=== PATIENT | male | born 1985 | race American Indian/Alaskan Native ===

== ENCOUNTER 2017-07-08 17:33 | Emergency (ER) | payer OTHER ==
[2017-07-08 17:33] VITALS: BMI 36.3
[2017-07-08 18:00] VITALS: BP 159/102; PULSE 93; RESP 16; TEMP 98.3; O2SAT 100
[2017-07-08 18:25] LABS: BASO # 0.02 K/mm3 (0.0-2.0); BASO % 0.4 % (0.0-3.0); EOS # 0.1 (0.0-0.7); EOS % 0.9 % (1.5-5.0); GRAN # 3.31 (1.4-6.5); GRAN % 59.1 % (50.0-68.0); HEMATOCRIT 47.9 % (42.0-52.0); LYMPH # 1.5 (1.2-3.4); LYMPH % 27.3 % (22.0-35.0); MEAN CELL VOLUME 92.6 fl (80.0-105.0); MEAN CORPUSCULAR HEMOGLOBIN 32.9 pg (25.0-35.0); MEAN CORPUSCULAR HGB CONC 35.5 g/dl (31.0-37.0); MEAN PLATELET VOLUME 11.2 fl (7.0-11.0); MONO # 0.7 (0.1-0.6); MONO % 12.3 % (1.0-6.0); RED CELL DISTRIBUTION WIDTH 14.5 % (11.5-14.5); WHITE BLOOD COUNT 5.6 10^3/ul (4.5-11.0)
--- NOTE | 2017-07-08 18:26 | ED PDOC ---
Arrival/HPI - General Chief Complaint: Medical Clearance Time Seen by Provider: 07/08/17 17:40 Historian: Patient - History of Present Illness Narrative History of Present Illness (Text): 07/08/17 20:17 31-year-old male presents today after being advised to come in by his primary care physician for chest pain on 07/02. Patient states on 07/02 the patient was having cough and URI symptoms with some shortness of breath and pain in the chest. Patient states that although symptoms resolved. Patient denies chest pain. He denies fevers or chills. He denies nausea vomiting diarrhea or constipation. Patient states he only came in today because his doctor told him to come in and he didn't come in when he was supposed to. Time/Duration: 1 week Symptom Course: Resolved Past Medical History - Provider Review Nursing Documentation Reviewed: Yes - Travel History Have you recently traveled outside [place] w/in the past 3 mons?: No - Infectious Disease Hx of Infectious Diseases: None - Tetanus Immunization Tetanus Immunization: Unknown - Cardiac Hx Cardiac Disorders: Yes Hx Hypertension: Yes - Pulmonary Hx Respiratory Disorders: No - Neurological Hx Neurological Disorder: No - HEENT Hx HEENT Disorder: No - Renal Hx Renal Disorder: No - Endocrine/Metabolic Hx Endocrine Disorders: Yes Hx Diabetes Mellitus Type 2: Yes - Hematological/Oncological Hx Blood Disorders: No - Integumentary Hx Dermatological Disorder: No - Musculoskeletal/Rheumatological Hx Musculoskeletal Disorders: No - Gastrointestinal Hx Gastrointestinal Disorders: No - Genitourinary/Gynecological Hx Genitourinary Disorders: No - Psychiatric Hx Psychophysiologic Disorder: No Hx Depression: No Hx Emotional Abuse: No Hx Physical Abuse: No Hx Substance Use: No - Past Surgical History Past Surgical History: No Previous - Anesthesia Hx Anesthesia: No Hx Anesthesia Reactions: No Hx Malignant Hyperthermia: No - Suicidal Assessment Feels Threatened In Home Enviroment: No Family/Social History - Physician Review Nursing Documentation Reviewed: Yes Family/Social History: Unknown Family HX Smoking Status: Heavy Smoker > 10 Cigarettes Daily Hx Alcohol Use: Yes Hx Substance Use: No Hx Substance Use Treatment: No Allergies/Home Meds Allergies/Adverse Reactions: Allergies No Known Allergies Allergy (Verified 01/10/16 14:13) Review of Systems - Review of Systems Constitutional: absent: Fatigue, Fevers Respiratory: SOB (resolved), Cough. absent: Wheezing Cardiovascular: Chest Pain (resolved). absent: Palpitations Gastrointestinal: absent: Abdominal Pain, Nausea, Vomiting Musculoskeletal: absent: Arthralgias, Back Pain, Neck Pain Skin: absent: Rash, Pruritis Neurological: absent: Headache, Dizziness Psychiatric: absent: Anxiety, Depression Physical Exam Vital Signs Reviewed: Yes Vital Signs Temp Pulse Resp BP Pulse Ox 07/08/17 17:50 98.3 F 93 H 16 159/102 H 100 Temperature: Afebrile Blood Pressure: Hypertensive Pulse: Regular Respiratory Rate: Normal Appearance: Positive for: Well-Appearing, Non-Toxic, Comfortable Pain Distress: None Mental Status: Positive for: Alert and Oriented X 3 - Systems Exam Head: Present: Atraumatic Pupils: Present: PERRL Extroacular Muscles: Present: EOMI Conjunctiva: Present: Normal Mouth: Present: Moist Mucous Membranes Pharnyx: Present: Normal. No: ERYTHEMA, EXUDATE, TONSILS ENLARGED Nose (External): Present: Atraumatic Nose (Internal): Present: Normal Inspection Neck: Present: Normal Range of Motion, Trachea Midline. No: Lymphadenopathy Respiratory/Chest: Present: Clear to Auscultation, Good Air Exchange. No: Respiratory Distress, Accessory Muscle Use Cardiovascular: Present: Regular Rate and Rhythm, Normal S1, S2. No: Murmurs Abdomen: No: Tenderness, Distention, Rebound, Guarding Neurological: Present: GCS=15, Speech Normal Skin: Present: Warm, Dry, Normal Color. No: Rashes Psychiatric: Present: Alert, Oriented x 3 Medical Decision Making ED Course and Treatment: 07/08/17 20:07 pt presents for medical clearance. denying any complaints at present time. vital stable. cbc wnl cmp; glucose; 176 trop; wnl ekg; sinus tachycardia at 107 bpm left ventricular hypertrophy no ST elevations cxr; no infiltrate, no effusion; borderline cardiomegaly. pt was seen by dr. narvaez at beside; dr. narvaez would like patient to be admitted for chest pain with htn and cardiomegaly will need stress test. pt was advised to remain in hospital for further evaluation, but states states he has to leave and will return on friday. Patient has been advised to not leave the emergency room but has decided to go AGAINST MEDICAL ADVICE. The patient possesses capacity to make decisions and has voiced understanding to all my warnings of potential worsening of the condition for which medical care was sought. I have discussed all known and potential risks and consequences to the patient leaving AGAINST MEDICAL ADVICE. Patient is leaving against medical advise. AMA form signed. witness by REINA osorio; chest pain AMA return if you wish to continue your care return immediately if symptoms worsen,persist or if new symptoms develop. - Lab Interpretations Lab Results: 07/08/17 18:14 07/08/17 18:14 Lab Results 07/08/17 18:55: Lactate Dehydrogenase 768 H, Total Creatine Kinase 304 H, CK-MB (CK-2) 1.2, CK-MB (CK-2) % Cancelled, Troponin I < 0.01 07/08/17 18:14: WBC 5.6, RBC 5.17, Hgb 17.0, Hct 47.9, MCV 92.6, MCH 32.9, MCHC 35.5, RDW 14.5, Plt Count 156, MPV 11.2 H, Gran % 59.1, Lymph % (Auto) 27.3, [place] % (Auto) 12.3 H, Eos % (Auto) 0.9 L, Baso % (Auto) 0.4, Gran # 3.31, Lymph # 1.5, [place] # 0.7 H, Eos # 0.1, Baso # 0.02 07/08/17 18:14: Sodium 139, Potassium 3.7, Chloride 98, Carbon Dioxide 28, Anion Gap 17, BUN 12, Creatinine 0.7 L, Est GFR ( Amer) > 60, Est GFR ( Non-Af Amer) > 60, Random Glucose 176 H, Calcium 9.9, Total Bilirubin 1.1, AST 126 H, ALT 115 H, Alkaline Phosphatase 65, Total Protein 7.6, Albumin 4.5, Globulin 3.0, Albumin/Globulin Ratio 1.5 - RAD Interpretation Radiology Orders: 07/08/17 17:53 CHEST PORTABLE [RAD] Stat Disposition/Present on Arrival - Present on Arrival Any Indicators Present on Arrival: No History of DVT/PE: No History of Uncontrolled Diabetes: No Urinary Catheter: No History of Decub. Ulcer: No History Surgical Site Infection Following: None - Disposition Have Diagnosis and Disposition been Completed?: Yes Diagnosis: Chest pain, Hypertension, Diabetes Disposition: AGAINST MEDICAL ADVICE Disposition Time: 20:08 Patient Plan: Other (AMA) Patient Problems: Current Active Problems Problem Status Onset Chest pain Acute Diabetes Acute Hypertension Acute Condition: UNKNOWN Discharge Instructions (ExitCare): Chest Pain (ED) Additional Instructions: return if you wish to continue your care return immediately if symptoms worsen,persist or if new symptoms develop. Referrals: Taylor Narvaez MD [Primary Care Provider] - Follow up with primary Forms: Anda (Swedish)
[2017-07-08 18:31] LABS: ALB/GLOB RATIO 1.5 (1.1-1.8); ALKALINE PHOSPHATASE 65 U/L (38-126); ALT/SGPT 115 U/L (7-56); AST/SGOT 126 U/L (17-59); BILIRUBIN,TOTAL 1.1 mg/dL (0.2-1.3); BLOOD UREA NITROGEN 12 mg/dL (7-21); CALCIUM 9.9 mg/dL (8.4-10.5); CARBON DIOXIDE 28 mmol/L (21-33); CHLORIDE 98 mmol/L (98-107); GFR AFRICAN-AMERICAN > 60; GLUCOSE,RANDOM 176 mg/dL (70-110); POTASSIUM 3.7 mmol/L (3.6-5.0); SODIUM 139 mmol/L (132-148); TOTAL PROTEIN 7.6 g/dL (5.8-8.3)
--- NOTE | 2017-07-08 18:32 | RAD ---
HISTORY: cough COMPARISON: None available. TECHNIQUE: Chest, one view. FINDINGS: Examination limited by habitus and hypoinflation. LUNGS: No focal consolidation. Please note that chest x-ray has limited sensitivity for the detection of pulmonary masses. PLEURA: No significant pleural effusion identified. No definite pneumothorax . CARDIOVASCULAR: Borderline cardiomegaly. OSSEOUS STRUCTURES: No acute osseous abnormality identified. VISUALIZED UPPER ABDOMEN: Unremarkable. OTHER FINDINGS: None. IMPRESSION: No focal consolidation, significant pleural effusion, or definite pneumothorax identified. Borderline cardiomegaly.
[2017-07-08 19:36] LABS: TROPONIN I < 0.01 ng/mL
--- NOTE | 2017-07-10 10:26 | CARD ---
APPROVED REPORT EKG Measurement Heart [id number] <Conclusion> Sinus tachycardia Possible Left atrial enlargement Left ventricular hypertrophy Abnormal ECG
== END 2017-07-08 20:02 | disposition left against medical advice (07) ==
LOC: ED 17:33
DX: R07.9 Chest pain, unspecified (principal); I10 Essential (primary) hypertension; E11.9 Type 2 diabetes mellitus without complications